=== PATIENT | female | born 1985 | race Caucasian/White ===

== ENCOUNTER 2018-04-01 09:19 | Day surgery (SDC) | payer BC ==
--- OUTSIDE RECORDS SUMMARY | 2018-04-01 09:22 | XMS REPORT | Clinical Summary ---
:1985 Author Organization [facility] Address [address] [place] [address] Care Team Providers Name Role Phone Asked, No Pcp Primary Care Provider Unavailable Allergies Active Allergy Reactions Severity Noted Date Comments Penicillin Hives High 11/20/2017 Current Medications Prescription Sig. Disp. Refills Start Date End Date Status hydrOXYzine (ATARAX) Take 50 mg by Discontinued 25 MG tablet mouth 3 8 (three) times a day as needed for anxiety (unclear frequency). Says takes 100 mg lithium 150 MG Take 100 mg Discontinued capsule by mouth 2 8 (two) times a day. One in the morning and 2 at night QUEtiapine Take 50 mg by Discontinued (SEROquel) 50 MG mouth 2 (two) 8 tablet times a day. gabapentin Take 1 90 capsule 0 11/25/2017 (NEURONTIN) 400 mg capsule (400 8 capsuleIndications: mg total) by Alcoholism mouth 3 (three) times a day for 30 days. hydrOXYzine (ATARAX) Take 1 tablet 30 tablet 0 11/25/2017 50 MG (50 mg total) 8 tabletIndications: by mouth Anxiety every 6 (six) hours as needed (Mild Anxiety) for up to 30 days. benztropine Take 1 tablet 60 tablet 0 11/25/2017 (COGENTIN) 1 MG (1 mg total) 8 tabletIndications: by mouth 2 Extrapyramidal (two) times a Disease day for 30 days. QUEtiapine Take 1 tablet 30 tablet 0 11/25/2017 (SEROquel) 100 MG (100 mg 8 tabletIndications: total) by Carol associated mouth nightly with Bipolar for 30 days. Disorder lithium 600 MG Take 1 30 capsule 0 11/25/2017 capsuleIndications: capsule (600 8 Bipolar Disorder mg total) by mouth nightly for 30 days. lithium 300 MG Take 1 30 capsule 0 11/25/2017 capsuleIndications: capsule (300 8 Bipolar Disorder mg total) by mouth every morning for 30 days. nicotine (NICODERM Place 1 patch 30 patch 0 11/25/2017 CQ) 21 mg/24 on the skin 8 hrIndications: daily as Smoking Cessation needed (Cravings) for up to 30 days. Active Problems Problem Noted Date Severe manic bipolar I disorder with psychotic features 11/21/2017 Suicidal ideations 11/20/2017 Encounters Date Type Specialty Care Team Description 11/20/2017 - Hospital Encounter Psychiatry Waldemar Ruby 11/25/2017 DO Kory Servin James N., MD after 03/31/2017 Family History Medical History Relation Name Comments Suicide Attempts Maternal Grandmother Suicide Attempts Sister Relation Name Status Comments Maternal Grandmother Sister Social History Tobacco Use Types Packs/Day Years Used Date Current Every Day Smoker Cigarettes 1 15 Started: 07/20/1996 Smokeless Tobacco: Never Used Tobacco Cessation: Ready to Quit: No; Counseling Given: Yes Comments: refused quit line Alcohol Use Drinks/Week oz/Week Comments No denies Sex Assigned at Date Recorded Not on file Last Filed Vital Signs Vital Sign Reading Time Taken Blood Pressure 103/68 11/25/2017 5:41 AM [employer] Pulse 73 11/25/2017 5:41 AM [employer] TRA[employer] Temperature 36.5 C (97.7 F) 11/25/2017 5:41 AM [employer] TRA[employer]IST Respiratory Rate 18 11/25/2017 5:41 AM [employer] TRA[employer]IST Oxygen Saturation 97% 11/24/2017 8:31 PM [employer] TRA[employer]ING [employer]IST Inhaled Oxygen Concentration - - Weight 51.9 kg (114 lb 8 oz) 11/20/2017 10:39 PM [employer] TRA[employer] Height 149.9 cm (4' 11") 11/20/2017 10:39 PM [employer] Body Mass Index 23.13 11/20/2017 10:39 PM [employer] TRA[employer]IST Plan of Treatment Not on file Procedures Procedure Name Priority Date/Time Associated Comments Diagnosis LITHIUM LEVEL Routine 11/25/2017 6:00 Results for this AM [employer] procedure are in the results section. ECG 12-LEAD STAT 11/20/2017 9:43 Results for this PM [employer] procedure are in the results section. LIPID PANEL STAT 11/20/2017 9:30 Results for this PM [employer] procedure are in the results section. HEMOGLOBIN A1C STAT 11/20/2017 9:30 Results for this PM [employer] procedure are in the results section. ESTIMATED GFR STAT 11/20/2017 9:30 Results for this PM [employer] procedure are in the results section. CARBAMAZEPINE LEVEL STAT 11/20/2017 9:30 Results for this PM [employer] procedure are in the results section. LITHIUM LEVEL STAT 11/20/2017 9:30 Results for this PM [employer] procedure are in the results section. HCG QUALITATIVE, SERUM STAT 11/20/2017 9:30 Results for this SCREEN PM [employer] procedure are in the results section. CREATINE KINASE, TOTAL STAT 11/20/2017 9:30 Results for this (CPK) PM [employer] procedure are in the results section. SALICYLATE LEVEL STAT 11/20/2017 9:30 Results for this PM [employer] procedure are in the results section. ACETAMINOPHEN LEVEL STAT 11/20/2017 9:30 Results for this PM [employer] procedure are in the results section. URINE DRUGS OF ABUSE STAT 11/20/2017 9:30 Results for this SCREEN PM [employer] procedure are in the results section. URINALYSIS SCREEN AND STAT 11/20/2017 9:30 Results for this MICROSCOPY, WITH PM [employer] procedure are in REFLEX TO CULTURE the results section. ALCOHOL LEVEL, BLOOD STAT 11/20/2017 9:30 Results for this PM [employer] procedure are in the results section. THYROID STIMULATING STAT 11/20/2017 9:30 Results for this HORMONE PM [employer] procedure are in the results section. T4, FREE STAT 11/20/2017 9:30 Results for this PM [employer] procedure are in the results section. COMPREHENSIVE STAT 11/20/2017 9:30 Results for this METABOLIC PANEL PM [employer] procedure are in the results section. HC COMPLETE BLD COUNT STAT 11/20/2017 9:30 Results for this W/AUTO DIFF PM [employer] procedure are in the results section. URINE CULTURE STAT 11/20/2017 9:30 Results for this PM [employer] procedure are in the results section. after 03/31/2017 Results [place] level (11/25/2017 6:00 AM)Only the most recent of2 resultswithin the time period is included. [place] 0.77 0.60 - 1.20 mmol/L [facility] DEPARTMENT OF PATHOLOGY AND GENOMIC MEDICINE Specimen Serum Performing Organization Address City/[facility]/Zipcode Phone Number [facility] DEPARTMENT OF PATHOLOGY AND [address] [place] [id number] [facility] MEDIC[facility] ECG 12 lead (11/20/2017 9:43 PM) Ventricular rate 84 [facility] MUSE Atrial rate 84 [facility] M[facility] MS interval 124 [facility]USE QRSD interval 84 [facility] QT interval 398 [facility] QTC interval 470 [facility] MUSE P axis 1 56 [facility]USE QRS axis 1 69 [facility] M[facility] T wave axis 55 [facility] MUSE EKG impression Normal sinus rhythm-Normal ECG-No previous [facility]USE ECGs available- Performing Organization Address City/[facility] Phone Number [facility] MUSE [address] [place] [address] Urinalysis screen and microscopy, with reflex to culture (11/20/2017 9:30 PM) Specimen site Clean catch [facility] DEPARTMENT OF PATHOLOGY AND GENOMIC MEDICINE Color, UA Colorless [facility] DEPARTMENT OF PATHOLOGY AND GENOMIC MEDICINE Appearance, UA Clear [facility] DEPARTMENT OF PATHOLOGY AND GENOMIC MEDICINE Specific gravity, UA 1.003 1.001 - 1.035 [facility] DEPARTMENT OF PATHOLOGY AND GENOMIC MEDICINE pH, UA 7.0 5.0 - 8.5 [facility] DEPARTMENT OF PATHOLOGY AND GENOMIC MEDICINE Protein, UA Negative Negative [facility] DEPARTMENT OF PATHOLOGY AND GENOMIC MEDICINE Glucose, UA Negative Negative [facility] DEPARTMENT OF PATHOLOGY AND GENOMIC MEDICINE Ketones, UA Negative Negative [facility] DEPARTMENT OF PATHOLOGY AND GENOMIC MEDICINE Bilirubin, UA Negative Negative [facility] DEPARTMENT OF PATHOLOGY AND GENOMIC MEDICINE Blood, UA Negative Negative [facility] DEPARTMENT OF PATHOLOGY AND GENOMIC MEDICINE Nitrite, UA Negative Negative [facility] DEPARTMENT OF PATHOLOGY AND GENOMIC MEDICINE Urobilinogen, UA <2.0 <2.0 [facility] DEPARTMENT OF PATHOLOGY AND GENOMIC MEDICINE Leukocyte esterase, UA Negative Negative [facility] DEPARTMENT OF PATHOLOGY AND GENOMIC MEDICINE Epithelial cells, UA 1 /HPF [facility] DEPARTMENT OF PATHOLOGY AND GENOMIC MEDICINE WBC, UA <1 0 - 4 /HPF [facility] DEPARTMENT OF PATHOLOGY AND GENOMIC MEDICINE RBC, UA <1 0 - 2 /HPF [facility] DEPARTMENT OF PATHOLOGY AND GENOMIC MEDICINE Bacteria, UA None seen None seen [facility] DEPARTMENT OF PATHOLOGY AND GENOMIC MEDICINE Yeast, UA None seen [facility] DEPARTMENT OF PATHOLOGY AND GENOMIC MEDICINE Yeast with pseudohyphae, UA None seen [facility] DEPARTMENT OF PATHOLOGY AND GENOMIC MEDICINE Specimen Urine Performing Organization Address City/[facility] Phone Number [facility] DEPARTMENT OF PATHOLOGY AND [address] [place] [phone] [facility] Estimated GFR (11/20/2017 9:30 PM) GFR Non Af Amer >90 mL/min/1.73 m2 [facility] DEPARTMENT OF PATHOLOGY AND GENOMIC MEDICINE GFR Af Amer >90 mL/min/1.73 m2 [facility] DEPARTMENT OF Comment: PATHOLOGY AND GENOMIC Chronic kidney disease: <60 mL/min/1.73m2 MEDICINE Kidney failure: <15 mL/min/1.73m2 The estimated GFR is calculated from the IDMS-traceable Modification of Diet in Renal Disease Equation. The accuracy of the calculation is poor when the creatinine is normal. Calculated values >90 mL/min/1.73m2 are not reported. This equation has not been validated in children (<18 years), women, the elderly (>70 years), or ethnic groups other than Caucasians and Americans. Specimen Plasma specimen Performing Organization Address City/[facility]ode Phone Number [facility] DEPARTMENT OF PATHOLOGY AND [address] [place] [address] [facility] Urine drugs of abuse screen (11/20/2017 9:30 PM) Amphetamine screen, urine Positive (A) [facility] DEPARTMENT OF PATHOLOGY AND GENOMIC MEDICINE Barbiturate screen, urine Negative [facility] DEPARTMENT OF PATHOLOGY AND GENOMIC MEDICINE Benzodiazepine screen, Negative [facility] DEPARTMENT OF urine PATHOLOGY AND GENOMIC MEDICINE Cannabinoid screen, urine Negative [facility] DEPARTMENT OF PATHOLOGY AND GENOMIC MEDICINE Cocaine screen, urine Negative [facility] DEPARTMENT OF PATHOLOGY AND GENOMIC MEDICINE Methadone metabolite Negative [facility] DEPARTMENT OF (EDDP), urine PATHOLOGY AND GENOMIC MEDICINE Opiates screen, urine Negative [facility] DEPARTMENT OF PATHOLOGY AND GENOMIC MEDICINE Oxycodone screen, urine Negative [facility] DEPARTMENT OF PATHOLOGY AND GENOMIC MEDICINE Phencyclidine screen, urine Negative [facility] DEPARTMENT OF PATHOLOGY AND GENOMIC MEDICINE Tricyclic screen, urine Negative [facility] DEPARTMENT OF Comment: PATHOLOGY AND GENOMIC Drug screen minimum concentration of detectability MEDICINE Eujcxcdkuyxr1752 ng/mL Barbiturates 200 ng/mL Jjvmplxhthdyhgt454 ng/mL Gyjghhg501 ng/mL Conaacskr265 ng/mL Oextngy476 ng/mL Gitmsxlcz151 ng/mL Phencyclidine 25 ng/mL Mifpwpogaorp03 ng/mL Asvnlflcbs0467 ng/mL Negative test results indicates presumptive evidence of lack of clinically significant drug concentration in this urine specimen. Positive test results are presumptive evidence of clinically significant drug concentration in this urine specimen. Testing performed for medical purposes only. Specimen Urine Performing Organization Address [facility] Phone Number [facility] DEPARTMENT OF PATHOLOGY AND [address] [place] [address] [employer] [facility] CBC with platelet and differential (11/20/2017 9:30 PM) WBC 11.04 (H) 4.50 - 11.00 k/uL [facility] DEPARTMENT OF PATHOLOGY AND GENOMIC MEDICINE RBC 4.35 4.20 - 5.50 m/uL [facility] DEPARTMENT OF PATHOLOGY AND GENOMIC MEDICINE HGB 12.7 12.0 - 16.0 g/dL [facility] DEPARTMENT OF PATHOLOGY AND GENOMIC MEDICINE HCT 38.3 37.0 - 47.0 % [facility] DEPARTMENT OF PATHOLOGY AND GENOMIC MEDICINE MCV 88.0 82.0 - 100.0 fL [facility] DEPARTMENT OF PATHOLOGY AND GENOMIC MEDICINE MCH 29.2 27.0 - 34.0 pg [facility] DEPARTMENT OF PATHOLOGY AND GENOMIC MEDICINE MCHC 33.2 31.0 - 37.0 g/dL [facility] DEPARTMENT OF PATHOLOGY AND GENOMIC MEDICINE RDW - SD 42.6 37.0 - 55.0 fL [facility] DEPARTMENT OF PATHOLOGY AND GENOMIC MEDICINE MPV 10.6 8.8 - 13.2 fL [facility] DEPARTMENT OF PATHOLOGY AND GENOMIC MEDICINE Platelet count 261 150 - 400 k/uL [facility] DEPARTMENT OF PATHOLOGY AND GENOMIC MEDICINE Nucleated RBC 0.00 /100 WBC [facility] DEPARTMENT OF PATHOLOGY AND GENOMIC MEDICINE Neutrophils 44.1 39.0 - 69.0 % [facility] DEPARTMENT OF PATHOLOGY AND GENOMIC MEDICINE Lymphocytes 37.0 25.0 - 45.0 % [facility] DEPARTMENT OF PATHOLOGY AND GENOMIC MEDICINE Monocytes 10.4 (H) 0.0 - 10.0 % [facility] DEPARTMENT OF PATHOLOGY AND GENOMIC MEDICINE Eosinophils 7.2 (H) 0.0 - 5.0 % [facility] DEPARTMENT OF PATHOLOGY AND GENOMIC MEDICINE Basophils 0.7 0.0 - 1.0 % [facility] DEPARTMENT OF PATHOLOGY AND GENOMIC MEDICINE Immature granulocytes 0.6Comment: 0.0 - 1.0 % [facility] DEPARTMENT OF "Immature PATHOLOGY AND GENOMIC granulocytes" MEDICINE (promyelocytes, myelocytes, metamyelocytes) Specimen Blood Performing Organization Address City/[facility]ode Phone Number [facility] DEPARTMENT OF PATHOLOGY AND [address] Urine culture (11/20/2017 9:30 PM) Urine culture SEE COMMENTComment: Bacteriuria [facility] DEPARTMENT OF PATHOLOGY screen negative. AND [facility] MEDIC[facility] Performing Organization Address [facility] Cent[facility]ode Phone Number [facility] DEPARTMENT OF PATHOLOGY AND [address] [place] [address] hCG qualitative, serum screen (11/20/2017 9:30 PM) hCG qualitative, serum NegativeComment: [facility] DEPARTMENT OF Sensitivity of HCG test: 25 PATHOLOGY AND GENOMIC mIU/mL MEDICINE Specimen Blood Performing Organization Address [facility] Phone Number [facility] DEPARTMENT OF PATHOLOGY AND [address] [place] [address] Thyroid stimulating hormone (11/20/2017 9:30 PM) TSH 0.76 0.27 - 4.20 uIU/mL [facility] DEPARTMENT OF PATHOLOGY AND [facility] Specimen Plasma specimen Performing Organization Address [facility] Phone Number [facility] DEPARTMENT OF PATHOLOGY AND [address] [place] [address] T4, free (11/20/2017 9:30 PM) T4, free 1.8 (H) 0.9 - 1.7 ng/dL [facility] DEPARTMENT OF PATHOLOGY AND [facility] MED[facility] Specimen Plasma specimen Performing Organization Address [facility] Phone Number [facility] DEPARTMENT OF PATHOLOGY AND [address] [place] [address] Hemoglobin A1c (11/20/2017 9:30 PM) Hemoglobin A1C 5.1 4.0 - 5.6 % [facility] DEPARTMENT OF PATHOLOGY Comment: [facility] HbA1c cutoffs for diagnosing diabetes: 4.0% - 5.6%=normal 5.7% - 6.4%=increased risk for diabetes (prediabetes) >=6.5%=diabetes Goals for glycemic control (ADA 2016) < 7.0%Target for non adults with diabetes. More or less stringent targets may be appropriate for individual patients. <7.5% Target for Children and adolescents with type 1 diabetes. Performing Organization Address City/[facility]ode Phone Number [facility] DEPARTMENT OF PATHOLOGY AND [address] [place] [address] Creatine kinase, total (CPK) (11/20/2017 9:30 PM) Creatine kinase 249 (H) 26 - 192 U/L [facility] DEPARTMENT OF PATHOLOGY AND GENOMIC MEDICINE Specimen Plasma specimen Performing Organization Address City/[facility]ode Phone Number [facility] DEPARTMENT OF PATHOLOGY AND [address] [place] [id number] [place] [address] Alcohol level, blood (11/20/2017 9:30 PM) Alcohol None Detected mg/dL [facility] DEPARTMENT OF PATHOLOGY Comment: AND GENOMIC MEDICINE Normal None Detected Legal Intoxication in [place]80 mg/dL (0.08%) - Whole Blood Toxic Qjslppcavegyo367 mg/dL (0.2%) Potentially Ldiok203 - 500 mg/dL (0.35 - 0.5%) Alcohol percent None Detected % [facility] DEPARTMENT OF PATHOLOGY AND GENOMIC MEDICINE Specimen Plasma specimen Performing Organization Address [facility] Phone Number [facility] DEPARTMENT OF PATHOLOGY AND [address] [place] [phone] [facility] Acetaminophen level (11/20/2017 9:30 PM) Acetaminophen level <15.0 10.0 - 30.0 ug/mL [facility] DEPARTMENT OF Comment: PATHOLOGY AND GENOMIC Therapeutic 10-30 ug/mL MEDICINE Possible Toxicity 150-200 ug/mL Probable Toxicity >200 ug/mL Specimen Plasma specimen Performing Organization Address [facility] Phone Number [facility] DEPARTMENT OF PATHOLOGY AND [address] [place] [address] MEDICINE Salicylate level (11/20/2017 9:30 PM) Salicylate <3.0 3.0 - 30.0 mg/dL [facility] DEPARTMENT OF PATHOLOGY AND GENOMIC MEDICINE Specimen Plasma specimen Performing Organization Address [facility] Phone Number [facility] DEPARTMENT OF PATHOLOGY AND [address] [place] [phone] [facility] MED[facility] Carbamazepine level (11/20/2017 9:30 PM) Carbamazepine <2.00 (L) 8.00 - 12.00 ug/mL [facility] DEPARTMENT OF PATHOLOGY AND GENOMIC MEDICINE Specimen Blood Performing Organization Address [facility] Phone Number [facility] DEPARTMENT OF PATHOLOGY AND [address] [place] [phone] GENOMIC MEDICINE Lipid panel (11/20/2017 9:30 PM) Cholesterol 145 <200 mg/dL [facility] DEPARTMENT OF PATHOLOGY AND GENOMIC MEDICINE Triglycerides 116 <150 mg/dL [facility] DEPARTMENT OF PATHOLOGY AND GENOMIC MEDICINE HDL cholesterol 46 >40 mg/dL [facility] DEPARTMENT OF PATHOLOGY AND GENOMIC MEDICINE LDL cholesterol 86Comment: Result <100 mg/dL [facility] DEPARTMENT OF obtained by direct LDL PATHOLOGY AND GENOMIC measurement MEDICINE Lipid panel interpretation SeeBelow [facility] DEPARTMENT OF Comment: PATHOLOGY AND GENOMIC Total Cholesterol (mg/dL) MEDICINE <200 Desirable 341-632Ffbunhixfh-hypw >=240High Triglycerides (mg/dL) <150 Normal [id number]-ygaz 200-499High >=500Very high HDL Cholesterol (mg/dL) <40Low (male) <40Low (female) LDL Cholesterol (mg/dL) <100 Optimal 100-129Near or above optimal [phone]-tnje 160-189High >=190Very high Risk Catergories that modify LDL goals. Risk CatergoriesLDL goal (mg/dL) CHD and CHD risk equivalent<100 (10-year risk >20%) Multiple (2+) risk factors <130 (10-year risk=<20%) 0-1 risk factors <160 (<10-year risk) Defining levels of lipids in metabolic syndrome Triglycerides>=150 mg/dL HDL Cholesterol Men<40 mg/dL Women<40 mg/dL Non-HDL cholesterol is a second target for therapy in persons with high triglycerides (>=200 mg/dL) Specimen Plasma specimen Performing Organization Address City/State/Zipcode Phone Number [facility] DEPARTMENT OF PATHOLOGY AND [address] [place] [address] GENOMIC MEDICINE Comprehensive metabolic panel (11/20/2017 9:30 PM) Sodium 142 135 - 148 mEq/L [facility] DEPARTMENT OF PATHOLOGY AND GENOMIC MEDICINE Potassium 4.2 3.5 - 5.0 mEq/L [facility] DEPARTMENT OF PATHOLOGY AND GENOMIC MEDICINE Chloride 102 98 - 112 mEq/L [facility] DEPARTMENT OF PATHOLOGY AND GENOMIC MEDICINE CO2 26 24 - 31 mEq/L [facility] DEPARTMENT OF PATHOLOGY AND GENOMIC MEDICINE Anion gap 14 7 - 15 mEq/L [facility] DEPARTMENT OF Comment: PATHOLOGY AND GENOMIC Starting from January , anion gap calculation MEDICINE no longer incorporates potassium. Please note the change. BUN 11 6 - 20 mg/dL [facility] DEPARTMENT OF PATHOLOGY AND GENOMIC MEDICINE Creatinine 0.7 0.5 - 0.9 mg/dL [facility] DEPARTMENT OF PATHOLOGY AND GENOMIC MEDICINE Glucose 95 65 - 99 mg/dL [facility] DEPARTMENT OF PATHOLOGY AND GENOMIC MEDICINE Calcium 9.2 8.3 - 10.2 mg/dL [facility] DEPARTMENT OF PATHOLOGY AND GENOMIC MEDICINE Protein 6.9 6.3 - 8.3 g/dL [facility] DEPARTMENT OF Comment: PATHOLOGY AND GENOMIC 4.6-7.0 g/dL MEDICINE 1 week 4.4-7.6 g/dL 7 months-1year5.1-7.3 g/dL 1-2 years5.6-7.5 g/dL >3 years6.0-8.0 g/dL 18-150 6.3-8.3 g/dL Albumin 3.5 3.5 - 5.0 g/dL [facility] DEPARTMENT OF PATHOLOGY AND GENOMIC MEDICINE A/G ratio 1.0 0.7 - 3.8 [facility] DEPARTMENT OF PATHOLOGY AND GENOMIC MEDICINE Alkaline phosphatase 52 35 - 104 U/L [facility] DEPARTMENT OF PATHOLOGY AND GENOMIC MEDICINE AST 45 (H) 10 - 35 U/L [facility] DEPARTMENT OF PATHOLOGY AND GENOMIC MEDICINE ALT 56 (H) 5 - 50 U/L [facility] DEPARTMENT OF PATHOLOGY AND GENOMIC MEDICINE Total bilirubin 0.5 0.0 - 1.2 mg/dL [facility] DEPARTMENT OF PATHOLOGY AND GENOMIC MEDICINE Specimen Plasma specimen Performing Organization Address City/State/Zipcode Phone Number [facility] DEPARTMENT OF PATHOLOGY AND [address] [place] [address] [employer] [facility] after 03/31/2017
--- OUTSIDE RECORDS SUMMARY | 2018-04-01 09:22 | XMS REPORT | Continuity of Care Document ---
:1985 Author Organization Interface Problems Problem Status Onset Date Classification Date Comments Source Reported Medications Medication Details Route Status Patient Ordering Order Source Instructions Provider Date Allergies, Adverse Reactions, Alerts Substance Category Reaction Severity Reaction Status Date Comments Source type Reported Immunizations Immunization Date Given Site Status Last Updated Comments Source Results Order Results Value Reference Date Interpretation Comments Source Name Range Vital Signs Vital Sign Value Date Comments Source Encounters Location Location Encounter Encounter Reason Attending ADM DC Status Source Details Type Number For Provider Date Date Visit Outpatient [id number] JULIET 02/24 [facility] [place] Outpatient [id number] JULIET 03/18 [facility] [place] Outpatient [id number] JULIET 04/16 [facility] [place] Procedures Procedure Code Date Perfomer Comments Source
--- OUTSIDE RECORDS SUMMARY | 2018-04-01 09:25 | XMS REPORT | Clinical Summary ---
:1985 Author Organization [facility] Address [address] [place] [address] Care Team Providers Name Role Phone Asked, [...] Taken Blood Pressure 103/68 11/25/2017 5:41 AM FOOD WRITER Pulse 73 11/25/2017 5:41 AM FOOD WRITER Temperature 36.5 C (97.7 F) 11/25/2017 5:41 AM FOOD WRITER Respiratory Rate 18 11/25/2017 5:41 AM FOOD WRITER Oxygen Saturation 97% 11/24/2017 8:31 PM FOOD WRITER Inhaled Oxygen Concentration - - Weight 51.9 kg (114 lb 8 oz) 11/20/2017 10:39 PM FOOD WRITER Height 149.9 cm (4' 11") 11/20/2017 10:39 PM FOOD WRITER Body Mass Index 23.13 11/20/2017 10:39 PM FOOD WRITER Plan of Treatment Not on file Procedures Procedure Name Priority Date/Time Associated Comments Diagnosis LITHIUM LEVEL Routine 11/25/2017 6:00 Results for this AM FOOD WRITER procedure are in the results section. ECG 12-LEAD STAT 11/20/2017 9:43 Results for this PM FOOD WRITER procedure are in the results section. LIPID PANEL STAT 11/20/2017 9:30 Results for this PM FOOD WRITER procedure are in the results section. HEMOGLOBIN A1C STAT 11/20/2017 9:30 Results for this PM FOOD WRITER procedure are in the results section. ESTIMATED GFR STAT 11/20/2017 9:30 Results for this PM FOOD WRITER procedure are in the results section. CARBAMAZEPINE LEVEL STAT 11/20/2017 9:30 Results for this PM FOOD WRITER procedure are in the results section. LITHIUM LEVEL STAT 11/20/2017 9:30 Results for this PM FOOD WRITER procedure are in the results section. HCG QUALITATIVE, SERUM STAT 11/20/2017 9:30 Results for this SCREEN PM FOOD WRITER procedure are in the results section. CREATINE KINASE, TOTAL STAT 11/20/2017 9:30 Results for this (CPK) PM FOOD WRITER procedure are in the results section. SALICYLATE LEVEL STAT 11/20/2017 9:30 Results for this PM FOOD WRITER procedure are in the results section. ACETAMINOPHEN LEVEL STAT 11/20/2017 9:30 Results for this PM FOOD WRITER procedure are in the results section. URINE DRUGS OF ABUSE STAT 11/20/2017 9:30 Results for this SCREEN PM FOOD WRITER procedure are in the results section. URINALYSIS SCREEN AND STAT 11/20/2017 9:30 Results for this MICROSCOPY, WITH PM FOOD WRITER procedure are in REFLEX TO CULTURE the results section. ALCOHOL LEVEL, BLOOD STAT 11/20/2017 9:30 Results for this PM FOOD WRITER procedure are in the results section. THYROID STIMULATING STAT 11/20/2017 9:30 Results for this HORMONE PM FOOD WRITER procedure are in the results section. T4, FREE STAT 11/20/2017 9:30 Results for this PM FOOD WRITER procedure are in the results section. COMPREHENSIVE STAT 11/20/2017 9:30 Results for this METABOLIC PANEL PM FOOD WRITER procedure are in the results section. HC COMPLETE BLD COUNT STAT 11/20/2017 9:30 Results for this W/AUTO DIFF PM FOOD WRITER procedure are in the results section. URINE CULTURE STAT 11/20/2017 9:30 Results for this PM FOOD WRITER procedure are in the results section. after 03/31/2017 Results [place] level (11/25/2017 6:00 AM)Only the most recent of2 resultswithin the time period is included. [place] 0.77 0.60 - 1.20 mmol/L [facility] DEPARTMENT OF PATHOLOGY AND GENOMIC MEDICINE Specimen Serum Performing Organization Address City/[facility]/Zipcode Phone Number [facility] DEPARTMENT OF PATHOLOGY AND [address] [place] [id number] [facility] MEDICINE ECG 12 lead (11/20/2017 9:43 PM) Ventricular rate 84 [facility] MUSE Atrial rate 84 [facility] OK interval 124 [facility] QRSD interval 84 [facility] QT interval 398 [facility] QTC interval 470 [facility] P axis 1 56 [facility] QRS axis 1 69 [facility] T wave axis 55 [facility] EKG impression Normal sinus rhythm-Normal ECG-No previous [facility] ECGs available- Performing Organization Address City/[facility] Phone Number [facility] [address] [place] [address] Urinalysis screen and microscopy, with reflex to culture (11/20/2017 9:30 PM) Specimen site Clean catch [facility] DEPARTMENT OF PATHOLOGY AND GENOMIC MEDICINE Color, UA Colorless [facility] DEPARTMENT OF PATHOLOGY AND GENOMIC MEDICINE Appearance, UA Clear [facility] DEPARTMENT OF PATHOLOGY AND GENOMIC MEDICINE Specific gravity, UA 1.003 1.001 - 1.035 [facility] DEPARTMENT OF PATHOLOGY AND GENOMIC MEDICINE pH, UA 7.0 5.0 - 8.5 [facility] DEPARTMENT OF PATHOLOGY AND GENOMIC MEDICINE Protein, UA Negative Negative [facility] DEPARTMENT OF PATHOLOGY AND GENOMIC MEDICINE Glucose, UA Negative Negative [facility] DEPARTMENT OF PATHOLOGY AND GENOMIC MEDICINE Ketones, UA Negative Negative [facility] DEPARTMENT OF PATHOLOGY AND GENOMIC MEDICINE Bilirubin, UA Negative Negative [facility] DEPARTMENT OF PATHOLOGY AND GENOMIC MEDICINE Blood, UA Negative Negative [facility] DEPARTMENT OF PATHOLOGY AND GENOMIC MEDICINE Nitrite, UA Negative Negative [facility] DEPARTMENT OF PATHOLOGY AND GENOMIC MEDICINE Urobilinogen, UA <2.0 <2.0 [facility] DEPARTMENT OF PATHOLOGY AND GENOMIC MEDICINE Leukocyte esterase, UA Negative Negative [facility] DEPARTMENT OF PATHOLOGY AND GENOMIC MEDICINE Epithelial cells, UA 1 /HPF [facility] DEPARTMENT OF PATHOLOGY AND GENOMIC MEDICINE WBC, UA <1 0 - 4 /HPF [facility] DEPARTMENT OF PATHOLOGY AND GENOMIC MEDICINE RBC, UA <1 0 - 2 /HPF [facility] DEPARTMENT OF PATHOLOGY AND GENOMIC MEDICINE Bacteria, UA None seen None seen [facility] DEPARTMENT OF PATHOLOGY AND GENOMIC MEDICINE Yeast, UA None seen [facility] DEPARTMENT OF PATHOLOGY AND GENOMIC MEDICINE Yeast with pseudohyphae, UA None seen [facility] DEPARTMENT OF PATHOLOGY AND GENOMIC MEDICINE Specimen Urine Performing Organization Address City/[facility] Phone Number [facility] DEPARTMENT OF PATHOLOGY AND [address] [place] [address] [facility] Estimated GFR (11/20/2017 9:30 PM) GFR Non Af Amer >90 mL/min/1.73 m2 [facility] DEPARTMENT OF PATHOLOGY AND GENOMIC MEDICINE GFR Af Amer >90 mL/min/1.73 m2 [facility] DEPARTMENT OF Comment: PATHOLOGY AND GENOMIC [...] Americans. Specimen Plasma specimen Performing Organization Address City/[facility] Phone Number [facility] DEPARTMENT OF PATHOLOGY AND [address] [place] [address] [facility] Urine drugs of abuse screen (11/20/2017 9:30 PM) Amphetamine screen, urine Positive (A) [facility] DEPARTMENT OF PATHOLOGY AND GENOMIC MEDICINE Barbiturate screen, urine Negative [facility] DEPARTMENT OF PATHOLOGY AND GENOMIC MEDICINE Benzodiazepine screen, Negative [facility] DEPARTMENT OF urine PATHOLOGY AND GENOMIC MEDICINE Cannabinoid screen, urine Negative [facility] DEPARTMENT OF PATHOLOGY AND GENOMIC MEDICINE Cocaine screen, urine Negative [facility] DEPARTMENT OF PATHOLOGY AND GENOMIC MEDICINE Methadone metabolite Negative [facility] DEPARTMENT OF (EDDP), urine PATHOLOGY AND GENOMIC MEDICINE Opiates screen, urine Negative [facility] DEPARTMENT OF PATHOLOGY AND GENOMIC MEDICINE Oxycodone screen, urine Negative [facility] DEPARTMENT OF PATHOLOGY AND GENOMIC MEDICINE Phencyclidine screen, urine Negative [facility] DEPARTMENT OF PATHOLOGY AND GENOMIC MEDICINE Tricyclic screen, urine Negative [facility] DEPARTMENT OF Comment: PATHOLOGY AND GENOMIC Drug screen minimum concentration of detectability MEDICINE Lfgbkxmurpxi0182 ng/mL Barbiturates 200 ng/mL Qqtnfdyycxuksyv012 ng/mL Sltkwlr583 ng/mL Cianfweax996 ng/mL Vmdbqux923 ng/mL Ahkwrxxka057 ng/mL Phencyclidine 25 ng/mL Hkfmozyscqnx17 ng/mL Vpuscdomfe4457 ng/mL Negative test results indicates presumptive evidence of lack of clinically significant drug concentration in this urine specimen. Positive test results are presumptive evidence of clinically significant drug concentration in this urine specimen. Testing performed for medical purposes only. Specimen Urine Performing Organization Address [facility] Phone Number [facility] DEPARTMENT OF PATHOLOGY AND [address] [place] [address] [employer] [facility] CBC with platelet and differential (11/20/2017 9:30 PM) WBC 11.04 (H) 4.50 - 11.00 k/uL [facility] DEPARTMENT OF PATHOLOGY AND GENOMIC MEDICINE RBC 4.35 4.20 - 5.50 m/uL [facility] DEPARTMENT OF PATHOLOGY AND GENOMIC MEDICINE HGB 12.7 12.0 - 16.0 g/dL [facility] DEPARTMENT OF PATHOLOGY AND GENOMIC MEDICINE HCT 38.3 37.0 - 47.0 % [facility] DEPARTMENT OF PATHOLOGY AND GENOMIC MEDICINE MCV 88.0 82.0 - 100.0 fL [facility] DEPARTMENT OF PATHOLOGY AND GENOMIC MEDICINE MCH 29.2 27.0 - 34.0 pg [facility] DEPARTMENT OF PATHOLOGY AND GENOMIC MEDICINE MCHC 33.2 31.0 - 37.0 g/dL [facility] DEPARTMENT OF PATHOLOGY AND GENOMIC MEDICINE RDW - SD 42.6 37.0 - 55.0 fL [facility] DEPARTMENT OF PATHOLOGY AND GENOMIC MEDICINE MPV 10.6 8.8 - 13.2 fL [facility] DEPARTMENT OF PATHOLOGY AND GENOMIC MEDICINE Platelet count 261 150 - 400 k/uL [facility] DEPARTMENT OF PATHOLOGY AND GENOMIC MEDICINE Nucleated RBC 0.00 /100 WBC [facility] DEPARTMENT OF PATHOLOGY AND GENOMIC MEDICINE Neutrophils 44.1 39.0 - 69.0 % [facility] DEPARTMENT OF PATHOLOGY AND GENOMIC MEDICINE Lymphocytes 37.0 25.0 - 45.0 % [facility] DEPARTMENT OF PATHOLOGY AND GENOMIC MEDICINE Monocytes 10.4 (H) 0.0 - 10.0 % [facility] DEPARTMENT OF PATHOLOGY AND GENOMIC MEDICINE Eosinophils 7.2 (H) 0.0 - 5.0 % [facility] DEPARTMENT OF PATHOLOGY AND GENOMIC MEDICINE Basophils 0.7 0.0 - 1.0 % [facility] DEPARTMENT OF PATHOLOGY AND GENOMIC MEDICINE Immature granulocytes 0.6Comment: 0.0 - 1.0 % [facility] DEPARTMENT OF "Immature PATHOLOGY AND GENOMIC granulocytes" MEDICINE (promyelocytes, myelocytes, metamyelocytes) Specimen Blood Performing Organization Address City/[facility] Phone Number [facility] DEPARTMENT OF PATHOLOGY AND [address] Urine culture (11/20/2017 9:30 PM) Urine culture SEE COMMENTComment: Bacteriuria [facility] DEPARTMENT OF PATHOLOGY screen negative. AND [facility] MEDICINE Performing Organization Address [facility] Phone Number [facility] DEPARTMENT OF PATHOLOGY AND [address] [place] [address] hCG qualitative, serum screen (11/20/2017 9:30 PM) hCG qualitative, serum NegativeComment: [facility] DEPARTMENT OF Sensitivity of HCG test: 25 PATHOLOGY AND GENOMIC mIU/mL MEDICINE Specimen Blood Performing Organization Address [facility] Phone Number [facility] DEPARTMENT OF PATHOLOGY AND [address] [place] [address] Thyroid stimulating hormone (11/20/2017 9:30 PM) TSH 0.76 0.27 - 4.20 uIU/mL [facility] DEPARTMENT OF PATHOLOGY AND [facility] Specimen Plasma specimen Performing Organization Address [facility] Phone Number [facility] DEPARTMENT OF PATHOLOGY AND [address] [place] [address] T4, free (11/20/2017 9:30 PM) T4, free 1.8 (H) 0.9 - 1.7 ng/dL [facility] DEPARTMENT OF PATHOLOGY AND [facility] MEDICINE Specimen Plasma specimen Performing Organization Address [facility] Phone Number [facility] DEPARTMENT OF PATHOLOGY AND [address] [place] [address] Hemoglobin A1c (11/20/2017 9:30 PM) Hemoglobin A1C 5.1 4.0 - 5.6 % [facility] DEPARTMENT OF PATHOLOGY Comment: [facility] HbA1c cutoffs for diagnosing diabetes: 4.0% - 5.6%=normal 5.7% - 6.4%=increased risk for diabetes (prediabetes) >=6.5%=diabetes Goals for glycemic control (ADA 2016) < 7.0%Target for non adults with diabetes. More or less stringent targets may be appropriate for individual patients. <7.5% Target for Children and adolescents with type 1 diabetes. Performing Organization Address City/[facility] Phone Number [facility] DEPARTMENT OF PATHOLOGY AND [address] [place] [address] Creatine kinase, total (CPK) (11/20/2017 9:30 PM) Creatine kinase 249 (H) 26 - 192 U/L [facility] DEPARTMENT OF PATHOLOGY AND GENOMIC MEDICINE Specimen Plasma specimen Performing Organization Address City/[facility] Phone Number [facility] DEPARTMENT OF PATHOLOGY AND [address] [place] [id number] [place] [address] Alcohol level, blood (11/20/2017 9:30 PM) Alcohol None Detected mg/dL [facility] DEPARTMENT OF PATHOLOGY Comment: AND GENOMIC MEDICINE Normal None Detected Legal Intoxication in [place]80 mg/dL (0.08%) - Whole Blood Toxic Jgidnehmzkcle157 mg/dL (0.2%) Potentially Twsfc494 - 500 mg/dL (0.35 - 0.5%) Alcohol percent None Detected % [facility] DEPARTMENT OF PATHOLOGY AND GENOMIC MEDICINE Specimen Plasma specimen Performing Organization Address [facility] Phone Number [facility] DEPARTMENT OF PATHOLOGY AND [address] [place] [address] [facility] MEDICINE Acetaminophen level (11/20/2017 9:30 PM) Acetaminophen level <15.0 10.0 - 30.0 ug/mL [facility] DEPARTMENT OF Comment: PATHOLOGY AND GENOMIC Therapeutic 10-30 ug/mL MEDICINE Possible Toxicity 150-200 ug/mL Probable Toxicity >200 ug/mL Specimen Plasma specimen Performing Organization Address [facility] Phone Number [facility] DEPARTMENT OF PATHOLOGY AND [address] [place] [address] MEDICINE Salicylate level (11/20/2017 9:30 PM) Salicylate <3.0 3.0 - 30.0 mg/dL [facility] DEPARTMENT OF PATHOLOGY AND GENOMIC MEDICINE Specimen Plasma specimen Performing Organization Address [facility] Phone Number [facility] DEPARTMENT OF PATHOLOGY AND [address] [place] [address] [facility] MEDICINE Carbamazepine level (11/20/2017 9:30 PM) Carbamazepine <2.00 (L) 8.00 - 12.00 ug/mL [facility] DEPARTMENT OF PATHOLOGY AND GENOMIC MEDICINE Specimen Blood Performing Organization Address [facility] Phone Number [facility] DEPARTMENT OF PATHOLOGY AND [address] [place] [address] GENOMIC MEDICINE Lipid panel (11/20/2017 9:30 PM) Cholesterol 145 <200 mg/dL [facility] DEPARTMENT OF PATHOLOGY AND GENOMIC MEDICINE Triglycerides 116 <150 mg/dL [facility] DEPARTMENT OF PATHOLOGY AND GENOMIC MEDICINE HDL cholesterol 46 >40 mg/dL [facility] DEPARTMENT OF PATHOLOGY AND GENOMIC MEDICINE LDL cholesterol 86Comment: Result <100 mg/dL [facility] DEPARTMENT OF obtained by direct LDL PATHOLOGY AND GENOMIC measurement MEDICINE Lipid panel interpretation SeeBelow [facility] DEPARTMENT OF Comment: PATHOLOGY AND GENOMIC Total Cholesterol (mg/dL) MEDICINE <200 Desirable 520-749Rqzovundcw-wbac >=240High Triglycerides (mg/dL) <150 Normal 097-838Mgmaryvtgm-cryt 200-499High >=500Very high HDL Cholesterol (mg/dL) <40Low (male) <40Low (female) LDL Cholesterol (mg/dL) <100 Optimal 100-129Near or above optimal 445-001Konvkunssg-pzzp 160-189High >=190Very high Risk Catergories that modify [...] specimen Performing Organization Address City/State/Zipcode Phone Number [facility] DEPARTMENT OF PATHOLOGY AND [address] [place] [address] GENOMIC MEDICINE Comprehensive metabolic panel (11/20/2017 9:30 PM) Sodium 142 135 - 148 mEq/L [facility] DEPARTMENT OF PATHOLOGY AND GENOMIC MEDICINE Potassium 4.2 3.5 - 5.0 mEq/L [facility] DEPARTMENT OF PATHOLOGY AND GENOMIC MEDICINE Chloride 102 98 - 112 mEq/L [facility] DEPARTMENT OF PATHOLOGY AND GENOMIC MEDICINE CO2 26 24 - 31 mEq/L [facility] DEPARTMENT OF PATHOLOGY AND GENOMIC MEDICINE Anion gap 14 7 - 15 mEq/L [facility] DEPARTMENT OF Comment: PATHOLOGY AND GENOMIC Starting from January , anion gap calculation MEDICINE no longer incorporates potassium. Please note the change. BUN 11 6 - 20 mg/dL [facility] DEPARTMENT OF PATHOLOGY AND GENOMIC MEDICINE Creatinine 0.7 0.5 - 0.9 mg/dL [facility] DEPARTMENT OF PATHOLOGY AND GENOMIC MEDICINE Glucose 95 65 - 99 mg/dL [facility] DEPARTMENT OF PATHOLOGY AND GENOMIC MEDICINE Calcium 9.2 8.3 - 10.2 mg/dL [facility] DEPARTMENT OF PATHOLOGY AND GENOMIC MEDICINE Protein 6.9 6.3 - 8.3 g/dL [facility] DEPARTMENT OF Comment: PATHOLOGY AND GENOMIC 4.6-7.0 g/dL MEDICINE 1 week 4.4-7.6 g/dL 7 months-1year5.1-7.3 g/dL 1-2 years5.6-7.5 g/dL >3 years6.0-8.0 g/dL 18-150 6.3-8.3 g/dL Albumin 3.5 3.5 - 5.0 g/dL [facility] DEPARTMENT OF PATHOLOGY AND GENOMIC MEDICINE A/G ratio 1.0 0.7 - 3.8 [facility] DEPARTMENT OF PATHOLOGY AND GENOMIC MEDICINE Alkaline phosphatase 52 35 - 104 U/L [facility] DEPARTMENT OF PATHOLOGY AND GENOMIC MEDICINE AST 45 (H) 10 - 35 U/L [facility] DEPARTMENT OF PATHOLOGY AND GENOMIC MEDICINE ALT 56 (H) 5 - 50 U/L [facility] DEPARTMENT OF PATHOLOGY AND GENOMIC MEDICINE Total bilirubin 0.5 0.0 - 1.2 mg/dL [facility] DEPARTMENT OF PATHOLOGY AND GENOMIC MEDICINE Specimen Plasma specimen Performing Organization Address City/State/Zipcode Phone Number [facility] DEPARTMENT OF PATHOLOGY AND [address] [place] [address] [employer] [facility] after 03/31/2017
--- OUTSIDE RECORDS SUMMARY | 2018-04-01 09:25 | XMS REPORT | Continuity of Care Document ---
[...] Number For Provider Date Date Visit Outpatient [id number] JULIET 02/[address] [facility] [place] Outpatient [id number] JULIET 03/[address] [facility] [place] [id number] JULIET 04/[address] [facility] [place] Procedures Procedure Code Date Perfomer Comments Source
[2018-04-01 10:01] VITALS: BMI 23.4
[2018-04-01 12:41] LABS: CSF Glucose 53 mg/dL (40-70)
[2018-04-01 12:50] LABS: Body Fluid Source CSF; Color of fluid Colorless (COLORLESS); Fluid Total Volume 12.5 ml
[2018-04-01 12:51] LABS: Appearance CLEAR (CLEAR); Body Fluid WBC 0 /mm^3
--- NOTE | 2018-04-01 13:08 | RAD REPORT ---
EXAM DESCRIPTION: RAD - Lumbar Puncture For Dx - 04/01/2018 12:04 pm CLINICAL HISTORY: Choreiform movements, dyskinesia COMPARISON: None. TECHNIQUE: The procedure, risks and alternatives to the procedure were discussed with the patient in detail. After answering all questions, both oral and written consent were obtained. Time-out proced ure was performed. Patient had no contraindicated allergy or medication history. The patient was placed in an oblique prone position on the fluoroscopic table. The skin of the lower back was prepped and draped in the usual sterile fashion. After anesthetizing the skin and deeper sof t tissues with 1% lidocaine, a 22 gauge needle was advanced into the thecal sac at the L3 level. Intrathecal placement was confirmed. Approximately 11-12 mL of clear colorless CSF obtained. At the conclusion of the procedure, the needle was withdrawn and a sterile bandage placed over the pu ncture site. The patient tolerated the procedure well without immediate complications. Post-procedu re care and precaution instructions were discussed with the patient before the LP procedure. Patient was transferred to the same day surgical area for postprocedure monitoring. IMPRESSION: Successful fluoroscopic guided lumbar puncture. All obtained fluid was sent to the lab for studies requested by the referring physician.
[2018-04-01 13:28] VITALS: TEMP 98.4
[2018-04-01 13:54] VITALS: BP 116/62; O2SAT 98
== END 2018-04-01 13:54 | disposition home or self-care (01) ==
LOC: RAD 09:19 → EDSTATUS 11:00 → RAD 13:54
PROVIDERS: ATTEND Specialist
PROC: 009U3ZX Drainage of Spinal Canal, Percutaneous Approach, Diagnostic (ICD-10-PCS; principal; 2018-04-01)
PROC: B01BYZZ Fluoroscopy of Spinal Cord using Other Contrast (ICD-10-PCS; 2018-04-01)
DX: G25.5 Other chorea (principal); G24.9 Dystonia, unspecified; Z88.0 Allergy status to penicillin
CPT/HCPCS: 36415; 62270; 77003; 82945; 84157; 86592; 87070; 89050

== ENCOUNTER 2019-04-18 19:44 | Emergency (ER) | payer BC ==
--- OUTSIDE RECORDS SUMMARY | 2019-04-18 19:47 | XMS REPORT | Clinical Summary ---
:1985 [facility] Address [address] [place] [address] Care Team Providers Name Role Phone Asked, No Pcp Primary Care Provider Unavailable Allergies Active Allergy Reactions Severity Noted Date Comments Penicillin Hives High 11/20/2017 Medications Not on file Active Problems Problem Noted Date Severe manic bipolar I disorder with psychotic features 11/21/2017 Suicidal ideations 11/20/2017 Family History Medical History Relation Name Comments [...] Assigned at Date Recorded Not on file Job Start Date Occupation Industry Not on file Not on file Not on file Travel History Travel Start Travel End No recent travel history available. Last Filed Vital Signs Not on file Plan of Treatment Not on file Results Not on fileafter 04/17/2018 Advance Directives Patient has advance care planning documents, and code status on file. For more information, please contact:[place] [phone] [place] [address] Code Status Date Activated Date Inactivated Comments Full Code 11/21/2017 12:28 AM 11/25/2017 4:08 PM Code Status decision reached by: Patient
--- OUTSIDE RECORDS SUMMARY | 2019-04-18 19:47 | XMS REPORT | Continuity of Care Document ---
:1985 Author Organization [facility] Care Team Providers Name Role Phone [facility] Unavailable Unavailable Problems Problem Status Onset Classification Date Comments Source Date Reported Bipolar Active Problem 03/08/2019 [facility] Chorea Active Problem 03/08/2019 [facility] Dyskinesia Active Problem 03/08/2019 [facility] Latent Active Problem 03/08/2019 [facility] syphilis [facility] Migraine with Active Problem 03/08/2019 [facility] aura Neuro Oral Active Problem 03/08/2019 [facility] dyskinesia [facility] Left arm pain Active Problem 03/08/2019 [facility] Prolonged QT Active Problem 03/08/2019 [facility] interval Neuro Dyskinesia, 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 Neuro Hepatitis C Active Problem 03/08/2019 [facility] Medications Medication Details Route Status Patient Ordering Order Source Instructions Provider Date deutetrabenazine 6 =1 tab, PO, Active [facility] MG Oral Tablet BID, # 60 019 Neuro [Austedo] tab, Refill(s) 1, [place], Pharmacy: [facility] deutetrabenazine 6 =1 tab, PO, No [facility] MG Oral Tablet BID, # 60 Longer 019 Neuro [Austedo] tab, Active Refill(s) 3, [place], Pharmacy: [facility] deutetrabenazine 6 =1 tab, PO, No [facility] MG Oral Tablet BID, # 60 Longer 019 Neuro [Austedo] tab, [place] Active [place], Pharmacy: [facility] deutetrabenazine 6 See No [facility] MG Oral Tablet Instruction Longer 018 Neuro [Austedo] s, # 60 Active tab, Refill(s) 2, TAKE 1 TABLET BY MOUTH TWICE DAILY ([place]), [place], Pharmacy: [facility] Allergies, Adverse Reactions, Alerts Substance Category Reaction Severity Reaction Status Date Comments Source type Reported penicillin Assertion Drug Active [facility] allergy [facility] Immunizations No Data Provided for This Section Results No Data Provided for This Section Pathology Reports No Data Provided for This Section Diagnostic Reports No Data Provided for This Section Consultation Notes No Data Provided for This Section Discharge Summaries No Data Provided for This Section History and Physicals No Data Provided for This Section Vital Signs No Data Provided for This Section Encounters Location Location Encounter Encounter Reason Attending ADM DC Status Source Details Type Number For Provider Date Date Visit Outpatient [id number] J[facility]/24 [facility] [id number] JUL[facility] 03/18 [facility] [id number] JULIET 04/16 [facility] [id number] JULIET 06/18 [facility] [id number] JULIET 08/18 [facility] [id number] Juliet 08/18 08/19 [facility] [id number] JULIET 11/11 [facility] [id number] JULIET 01/04 Active [facility] [id number] [place] 01/11 [facility] [id number] Juliet 04/05 Active [facility] [place] Procedures No Data Provided for This Section Assessment and Plan No Data Provided for This Section Plan of Care No Data Provided for This Section Social History Social History Date Source Social History TypeResponse 01/11/2019 [facility] Smoking Status Current every day smoker; Type: Cigarettes; Exposure to Tobacco Smoke Unable to obtain; Cigarette Smoking Last 365 Days Yes; Reg Smoking Cessation Counseling No entered on: 01/11/19 Family History No Data Provided for This Section Advance Directives No Data Provided for This Section Functional Status No Data Provided for This Section
--- OUTSIDE RECORDS SUMMARY | 2019-04-18 19:47 | XMS REPORT | Summary of Care ---
:1985 Author Organization [facility] [place] Address [address] [place] [address]- phone Encounter [facility] Edi(FARHAT) [id number] Date(s): 08/18/18 - 08/18/18 [facility] [place] [address] [place] [address]- [phone] Discharge Disposition: Home or Self Care Attending Physician: Gabriel Best MD Referring Physician: Gabriel Best MD Vital Signs No data available for this section Problem List Condition Effective Dates Status Health Status Informant Bipolar disorder(Confirmed) Active Chorea(Confirmed) Active Dyskinesia(Confirmed) Active Latent syphilis(Confirmed) Active Migraine with aura(Confirmed) Active Oral dyskinesia(Confirmed) Active Left arm pain(Confirmed) Active Prolonged QT interval(Confirmed) Active Dyskinesia, tardive(Confirmed) Active Dyskinesia, tardive(Confirmed) Active Hepatitis C(Confirmed) Active Allergies, Adverse Reactions, Alerts Substance Reaction Severity Status penicillin Active Medications [place] 6 mg oral tablet =1 tab, PO, BID, # 60 tab, Refill(s) 3, [place], Pharmacy: [facility] Start Date: 02/17/19 Stop Date: 03/03/19 Status: CompletedAustedo 6 mg oral tablet =1 tab, PO, BID, # 60 tab, Refill(s) 1, [place], Pharmacy: [facility] Start Date: 03/03/19 Status: OrderedAustedo 6 mg oral tablet =1 tab, PO, BID, # 60 tab, [place], Pharmacy: [facility] Start Date: 12/04/18 Stop Date: 02/17/19 Status: CompletedAustedo 6 mg oral tablet See Instructions, # 60 tab, Refill(s) 2, TAKE 1 TABLET BY MOUTH TWICE DAILY ([place]) , [place], Pharmacy: [facility] Pharm[facility] Start Date: 08/11/18 Stop Date: 12/04/18 Status: Completed Results No data available for this section Immunizations No data available for this section Procedures No data available for this section Social History Social History Type Response Smoking Status Current every day smoker; Type: Cigarettes; Exposure to Tobacco Smoke Unable to obtain; Cigarette Smoking Last 365 Days Yes; Reg Smoking Cessation Counseling No entered on: 01/11/19 Assessment and Plan No data available for this section
--- NOTE | 2019-04-18 20:45 | RAD REPORT ---
EXAM DESCRIPTION: RAD - Chest Pa And Lat (2 Views) - 04/18/2019 8:28 pm CLINICAL HISTORY: Cough, fever, sore throat COMPARISON: None. TECHNIQUE: PA and lateral views of the chest were obtained. FINDINGS: The lungs are clear. Heart size is normal and central vasculature is within normal limit s. No pleural effusion or pneumothorax seen. No acute bony finding noted. No aortic abnormality. IMPRESSION: No acute cardiopulmonary process.
--- NOTE | 2019-04-18 21:17 | ER ---
Nurse's Notes [facility] Name: Lynn Hartman Age: 34 yrs Sex: Female : 1985 Arrival Date: 04/18/2019 Time: 19:47 Bed 19 Private MD: Adan Giraldo T Diagnosis: Acute upper respiratory infection, unspecified Presentation: 04/18 19:55 Presenting complaint: Patient states: "cough, sore throat and fever since 3 days after cc3 coming back from [place]". Transition of care: patient was not received from another setting of care. Onset of symptoms was April 15, 2019. Risk Assessment: Do you want to hurt yourself or someone else? Patient reports no desire to harm self or others. Initial Sepsis Screen: Does the patient meet any 2 criteria? No. Patient's initial sepsis screen is negative. Does the patient have a suspected source of infection? Yes: Productive cough/pneumonia. Care prior to arrival: None. 19:55 Method Of Arrival: Ambulatory cc3 19:55 Acuity: RONI 4 cc3 Triage Assessment: 19:55 General: Appears in no apparent distress. uncomfortable, Behavior is cooperative. Pain: cc3 Denies pain. EENT: Reports cough and sore throat since 3 days. Neuro: Level of Consciousness is awake, alert, obeys commands, Oriented to person, place, time, situation, Appropriate for age. Cardiovascular: Denies chest pain, Capillary refill < 3 seconds Patient's skin is warm and dry. Respiratory: Airway is patent Respiratory effort is even, unlabored, Respiratory pattern is regular, symmetrical. GI: Abdomen is round non-distended. : No signs and/or symptoms were reported regarding the genitourinary system. Derm: Skin is intact, is healthy with good turgor, Skin is pink, warm \\T\\ dry. normal. Musculoskeletal: Circulation, motion, and sensation intact. Range of motion: intact in all extremities. 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 - Social history:: Smoking status: Patient uses tobacco products, smokes one pack cigarettes per day. , Patient uses vape. - Ebola Screening: : No symptoms or risks identified at this time. Screenin:55 Abuse screen: Denies threats or abuse. Denies injuries from another. Nutritional cc3 screening: No deficits noted. Tuberculosis screening: No symptoms or risk factors identified. Fall Risk Ambulatory Aid- None/Bed Rest/Nurse Assist (0 pts). Gait- Normal/Bed Rest/Wheelchair (0 pts) Mental Status- Oriented to own ability (0 pts). Assessment: 19:55 Respiratory: Airway is patent Respiratory effort is even, unlabored, Respiratory cc3 pattern is regular, symmetrical. EENT: Throat bilaterally with gag reflex present. 19:55 Respiratory: Breath sounds are clear bilaterally. cc3 20:20 Reassessment: Patient appears in no apparent distress at this time. Patient and/or cc3 family updated on plan of care and expected duration. Pain level reassessed. Patient is alert, oriented x 3, equal unlabored respirations, skin warm/dry/pink. 21:08 Reassessment: Patient appears in no apparent distress at this time. Patient and/or cc3 family updated on plan of care and expected duration. Pain level reassessed. Patient is alert, oriented x 3, equal unlabored respirations, skin warm/dry/pink. 21:25 Reassessment: Patient appears in no apparent distress at this time. Patient and/or cc3 family updated on plan of care and expected duration. Pain level reassessed. Patient is alert, oriented x 3, equal unlabored respirations, skin warm/dry/pink. ADELFO Navarrete discharged the patient home with prescription given. No IV cannula in situ. Patient left ER vitally stable and ambulatory. No valuables left in the patient's room. Patient denies pain at this time. Patient states feeling better. Patient states symptoms have improved. Vital Signs: 19:55 BP 130 / 76; Pulse 89; Resp 20 S; Temp 99.3(O); Pulse Ox 100% on R/A; Weight 58.97 kg cc3 (R); Height 5 ft. 0 in. (152.40 cm) (R); 20:45 BP 134 / 80; Pulse 92; Resp 20 S; Pulse Ox 100% on R/A; cc3 21:15 BP 139 / 82; Pulse 91; Resp 19 S; Pulse Ox 97% on R/A; cc3 19:55 Body Mass Index 25.39 (58.97 kg, 152.40 cm) cc3 ED Course: 19:47 Patient arrived in ED. es 19:48 Adan Giraldo MD is Private Physician. es 19:50 Libby Allen is Primary Nurse. cc3 19:50 [facility] pm1 19:50 Otto Faulkner MD is Attending Physician. pm1 19:55 Arm band placed on right wrist. Patient notified of wait time. cc3 19:55 Patient has correct armband on for positive identification. Bed in low position. Call cc3 light in reach. Side rails up X 1. Pulse ox on. NIBP on. 20:07 Triage completed. cc3 20:26 Chest Pa And Lat (2 Views) XRAY In Process Unspecified. EDMS 21:25 No provider procedures requiring assistance completed. Patient did not have IV access cc3 during this emergency room visit. Administered Medications: 21:20 Drug: Tessalon Perle 200 mg Route: PO; cc3 21:25 Follow up: Response: No adverse reaction cc3 Outcome: 21:16 Discharge ordered by MD. pm1 21:25 Discharged to home ambulatory. cc3 21:25 Condition: stable 21:25 Discharge instructions given to patient, Instructed on discharge instructions, follow up and referral plans. medication usage, Demonstrated understanding of instructions, follow-up care, medications. 21:29 Patient left the ED. cc3 Signatures: Dispatcher [employer] EDMS Viki Navarro Patrick, NP FISCAL AGENT pm1 Libby Allen cc3
--- NOTE | 2019-04-18 21:17 | EDPHYS ---
Physician Documentation [facility] Name: Lynn Hartman Age: 34 yrs Sex: Female : 1985 Arrival Date: 04/18/2019 Time: 19:47 Bed 19 Private MD: Adan Giraldo T ED Physician Otto Faulkner HPI: 04/18 20:14 This 34 yrs old Female presents to ER via Ambulatory with complaints of pm1 Fever, Sore Throat, Cough. 20:14 The patient or guardian reports cough. Onset: The symptoms/episode began/occurred pm1 yesterday. Modifying factors: The symptoms are alleviated by nothing. the symptoms are aggravated by nothing. Associated signs and symptoms: Pertinent positives: fever, sore throat, Pertinent negatives: chest pain, ear ache, nausea, vomiting, shortness of breath. Severity of symptoms: in the emergency department the symptoms are worse. The patient has not recently seen a physician. 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 - Social history:: Smoking status: Patient uses tobacco products, smokes one pack cigarettes per day. , Patient uses vape. - Ebola Screening: : No symptoms or risks identified at this time. ROS: 20:14 Eyes: Negative for injury, pain, redness, and discharge. pm1 20:14 Neck: Negative for injury, pain, and swelling, Cardiovascular: Negative for chest pain, palpitations, and edema. 20:14 Abdomen/GI: Negative for abdominal pain, nausea, vomiting, diarrhea, and constipation, Back: Negative for injury and pain, MS/Extremity: Negative for injury and deformity, Skin: Negative for injury, rash, and discoloration, Neuro: Negative for headache, weakness, numbness, tingling, and seizure. 20:14 Constitutional: Positive for fever. 20:14 ENT: Positive for sore throat, Negative for drainage from ear(s), ear pain. 20:14 Respiratory: Positive for cough, Negative for shortness of breath, wheezing. Exam: 20:14 Constitutional: This is a well developed, well nourished patient who is awake, alert, pm1 and in no acute distress. Head/Face: Normocephalic, atraumatic. Eyes: Pupils equal round and reactive to light, extra-ocular motions intact. Lids and lashes normal. Conjunctiva and sclera are non-icteric and not injected. Cornea within normal limits. Periorbital areas with no swelling, redness, or edema. ENT: Nares patent. No nasal discharge, no septal abnormalities noted. Tympanic membranes are normal and external auditory canals are clear. Oropharynx with no redness, swelling, or masses, exudates, or evidence of obstruction, uvula midline. Mucous membranes moist. Neck: Trachea midline, no thyromegaly or masses palpated, and no cervical lymphadenopathy. Supple, full range of motion without nuchal rigidity, or vertebral point tenderness. No Meningismus. Chest/axilla: Normal chest wall appearance and motion. Nontender with no deformity. No lesions are appreciated. Cardiovascular: Regular rate and rhythm with a normal S1 and S2. No gallops, murmurs, or rubs. Normal PMI, no JVD. No pulse deficits. Respiratory: Lungs have equal breath sounds bilaterally, clear to auscultation and percussion. No rales, rhonchi or wheezes noted. No increased work of breathing, no retractions or nasal flaring. Abdomen/GI: Soft, non-tender, with normal bowel sounds. No distension or tympany. No guarding or rebound. No evidence of tenderness throughout. Back: No spinal tenderness. No costovertebral tenderness. Full range of motion. Skin: Warm, dry with normal turgor. Normal color with no rashes, no lesions, and no evidence of cellulitis. MS/ Extremity: Pulses equal, no cyanosis. Neurovascular intact. Full, normal range of motion. 20:14 Neuro: Orientation: is normal, Motor: is normal, moves all fours, Sensation: is normal, no obvious gross deficits, Gait: is steady, at a normal pace, without difficulty. Vital Signs: 19:55 BP 130 / 76; Pulse 89; Resp 20 S; Temp 99.3(O); Pulse Ox 100% on R/A; Weight 58.97 kg cc3 (R); Height 5 ft. 0 in. (152.40 cm) (R); 20:45 BP 134 / 80; Pulse 92; Resp 20 S; Pulse Ox 100% on R/A; cc3 21:15 BP 139 / 82; Pulse 91; Resp 19 S; Pulse Ox 97% on R/A; cc3 19:55 Body Mass Index 25.39 (58.97 kg, 152.40 cm) cc3 MDM: 19:51 Patient medically screened. parul 21:14 Data reviewed: vital signs. Data interpreted: Pulse oximetry: on room air is 100 %. pm1 Interpretation: normal. Counseling: I had a detailed discussion with the patient and/or guardian regarding: the historical points, exam findings, and any diagnostic results supporting the discharge/admit diagnosis, lab results, radiology results, the need for outpatient follow up, to return to the emergency department if symptoms worsen or persist or if there are any questions or concerns that arise at home. 04/18 19:58 Order name: Flu; Complete Time: 20:44 pm1 04/18 19:58 Order name: Strep; Complete Time: 20:44 pm1 04/18 19:58 Order name: Chest Pa And Lat (2 Views) XRAY; Complete Time: 20:53 pm1 04/18 20:30 Order name: Throat Culture [facility] 04/18 20:49 Order name: Urine Dipstick--Ancillary (enter results); Complete Time: 21:51 ar5 04/18 20:49 Order name: Urine --Ancillary (enter results); Complete Time: 21:51 ar5 04/18 19:58 Order name: Urine Dipstick-Ancillary (obtain specimen); Complete Time: 20:46 pm1 04/18 19:58 Order name: Urine Test (obtain specimen); Complete Time: 20:46 pm1 Administered Medications: 21:20 Drug: Tessalon Perle 200 mg Route: PO; cc3 21:25 Follow up: Response: No adverse reaction cc3 Disposition: 04/19 07:13 Co-signature as Attending Physician, Otto Faulkner MD I agree with the assessment and parul plan of care. Disposition: 04/18/19 21:16 Discharged to Home. Impression: Acute upper respiratory infection, unspecified. - Condition is Stable. - Discharge Instructions: Upper Respiratory Infection, Adult, Viral Respiratory Infection. - Prescriptions for Tessalon Perles 100 mg Oral Capsule - take 1 capsule by ORAL route every 8 hours As needed; 15 capsule. - Medication Reconciliation Form, Thank You Letter, Antibiotic Education, Prescription Opioid Use form. - Follow up: Emergency Department; When: As needed; Reason: Worsening of condition. Follow up: Private Physician; When: 2 - 3 days; Reason: Recheck today's complaints, Continuance of care, Re-evaluation by your physician. - Problem is new. - Symptoms have improved. Signatures: Dispatcher [employer] EDOtto Mar MD MD cha Marinas, Patrick, MEDICAL APPOINTMENT SCHEDULER MEDICAL APPOINTMENT SCHEDULER pm1 Libby Allen cc3 Corrections: (The following items were deleted from the chart) 04/18 21:29 21:16 04/18/2019 21:16 Discharged to Home. Impression: Acute upper respiratory cc3 infection, unspecified. Condition is Stable. Forms are Medication Reconciliation Form, Thank You Letter, Antibiotic Education, Prescription Opioid Use. Follow up: Emergency Department; When: As needed; Reason: Worsening of condition. Follow up: Private Physician; When: 2 - 3 days; Reason: Recheck today's complaints, Continuance of care, Re-evaluation by your physician. Problem is new. Symptoms have improved. pm1
[2019-04-18 21:26] LABS: Urine Blood NEGATIVE (NEG); Urine Glucose NEGATIVE (NEG); Urine Protein NEGATIVE (NEG); Urine Specific Gravity 1.015 (1.005-1.030)
[2019-04-18] MEDS ORDERED: BENZONATATE 100 MG CAP PO ONE (21:36)
== END 2019-04-18 21:29 | disposition home or self-care (01) ==
LOC: ER 19:44
DX: J06.9 Acute upper respiratory infection, unspecified (principal); F41.9 Anxiety disorder, unspecified; F17.210 Nicotine dependence, cigarettes, uncomplicated
CPT/HCPCS: 71046; 81003; 81025; 87070; 87081; 87804; 99283

== ENCOUNTER 2021-04-18 20:16 | Emergency (ER) | payer BC, SELFPAY ==
[2021-04-18 21:15] LABS: Urine Blood Negative (Negative); Urine Glucose Negative (Negative); Urine Protein Negative (Negative); Urine Specific Gravity 1.015 (1.005-1.030)
[2021-04-18 21:17] LABS: Basophils % 0.7 % (0-1.3); Hematocrit 41.5 % (36.0-45.0); Lymphocytes % 15.6 % (15.3-44.8); MPV 9.3 fL (7.6-11.3); RBC Red Blood Cell Count 4.79 M/uL (3.86-4.86)
[2021-04-18 21:34] LABS: Protime INR 1.18
[2021-04-18 21:35] LABS: ALT/SGPT 102 U/L (12-78); AST/SGOT 68 U/L (15-37); Albumin 3.5 g/dL (3.4-5.0); Alkaline Phosphatase 127 U/L (45-117); BUN Blood Urea Nitrogen 4 mg/dL (7-18); Bicarbonate 31 mmol/L (21-32); Bilirubin Direct 0.1 mg/dL (0-0.2); Bilirubin Total 0.4 mg/dL (0.2-1.0); Glucose Level 85 mg/dL (74-106); NT PRO-BNP 67 pg/mL (<125); Potassium 3.7 mmol/L (3.5-5.1); Protein, Total 7.3 g/dL (6.4-8.2); Sodium Level 139 mmol/L (136-145); Troponin (Emerg Dept Use Only) < 0.02 ng/mL (0.0-0.045)
--- NOTE | 2021-04-18 21:43 | RAD REPORT ---
EXAM DESCRIPTION: RAD - Chest Single View - 04/18/2021 9:09 pm CLINICAL HISTORY: CHEST PAIN COMPARISON: April 2019 TECHNIQUE: AP portable chest image was obtained 04/18/2021 9:09 pm . FINDINGS: Shallow inspiration, portable technique and overlying soft tissues accentuate each lung ba se. Heart and vasculature are normal. No measurable pleural effusion and no pneumothorax. No acute faby ny abnormality seen. No acute aortic findings suspected. IMPRESSION: No acute cardiopulmonary process. No significant change from comparison study.
[2021-04-18 21:55] LABS: Urine Specific Gravity/Preg 1.015 (1.005-1.030)
[2021-04-18] MEDS ORDERED: LEVALBUTEROL 1.25 MG/3 ML NEB ONE (23:02)
[2021-04-18] MEDS ORDERED: HYDROCODONE/CHLORPHEN 5 ML/OSYR ONE (23:02)
[2021-04-18] MEDS ORDERED: NA CHLORIDE 0.9% 1,000 ML ONE (23:03)
[2021-04-18] MEDS ORDERED: METHYLPREDNISOLONE 40 MG INJ ONE (23:03)
[2021-04-18] MEDS ORDERED: ACETAMINOPHEN 500 MG TAB ONE (23:59)
[2021-04-19] MEDS ORDERED: BENZONATATE 100 MG CAP PO ONE
--- NOTE | 2021-04-19 00:32 | EDPHYS ---
Physician Documentation [facility] Name: Lynn Hartman Age: 36 yrs Sex: Female : 1985 Arrival Date: 04/18/2021 Time: 20:19 Bed 19 Private MD: ED Physician Minesh Hernandez HPI: 04/18 22:15 This 36 yrs old Female presents to ER via Ambulatory with complaints of cp Cough, Chest Pain > 30 y/o. 22:15 The patient or guardian reports cough, that is constant, difficulty breathing. Onset: cp The symptoms/episode began/occurred 1 week(s) ago. 22:15 Associated signs and symptoms: Pertinent positives: chest pain, with cough, shortness cp of breath. 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 - Social history:: Smoking status: Patient reports the use of cigarette tobacco products, smokes one pack cigarettes per day. Exam: 20:47 ECG was reviewed by the Attending Physician. cp 22:25 Constitutional: The patient appears in no acute distress, alert, awake, cp non-diaphoretic, non-toxic, well developed, well nourished, obese. 22:25 Head/Face: Normocephalic, atraumatic. cp 22:25 Eyes: Periorbital structures: appear normal, Conjunctiva: normal, no exudate, no injection, Sclera: no appreciated abnormality, Lids and lashes: appear normal, bilaterally. 22:25 ENT: External ear(s): are unremarkable, Ear canal(s): are normal, clear, TM's: dullness, bilaterally, Nose: is normal, Mouth: Lips: moist, Oral mucosa: moist, Posterior pharynx: Airway: no evidence of obstruction, patent, Tonsils: no enlargement, no exudate, swelling, is not appreciated, erythema, that is mild, exudate, is not appreciated. 22:25 Neck: ROM/movement: is normal, is supple, no meningismus, no nuchal rigidity. 22:25 Chest/axilla: Inspection: normal, Palpation: crepitus, is not appreciated, tenderness, that is mild, of the right lateral posterior chest and right lateral anterior chest. 22:25 Cardiovascular: Rate: normal, Rhythm: regular, Edema: is not appreciated, JVD: is not appreciated. 22:25 Respiratory: the patient does not display signs of respiratory distress, Respirations: normal, no use of accessory muscles, no retractions, no splinting, no tachypnea, labored breathing, is not present, Breath sounds: bronchial sounds, that are mild, are heard diffusely, stridor, is not appreciated, + upper airway congestion. wheezing: is not appreciated. 22:25 Abdomen/GI: Inspection: abdomen appears normal, Bowel sounds: active, all quadrants, Palpation: abdomen is soft and non-tender, in all quadrants. 22:25 Back: pain, is absent, ROM is normal. Vital Signs: 20:31 BP 125 / 86; Pulse 93; Resp 20; Temp 99.0(O); Pulse Ox 96% on R/A; Weight 84.28 kg (M); bb Height 5 ft. 0 in. (152.40 cm) (R); Pain 8/10; 22:10 BP 125 / 95; Pulse 99; Resp 16; Pulse Ox 96% on R/A; jb4 23:45 BP 121 / 69; Pulse 95; Resp 16; Pulse Ox 95% on R/A; jb4 20:31 Body Mass Index 36.29 (84.28 kg, 152.40 cm) bb MDM: 22:16 Patient medically screened. cp 23:00 Differential Diagnosis: Bronchitis Influenza Pneumonia Other pulmonary embolism, cp cardiac arrythmia. 04/19 00:30 Data reviewed: vital signs, nurses notes, lab test result(s), EKG, radiologic studies, cp plain films. Test interpretation: by ED physician or midlevel provider: ECG, plain radiologic studies. Counseling: I had a detailed discussion with the patient and/or guardian regarding: the historical points, exam findings, and any diagnostic results supporting the discharge/admit diagnosis, lab results, radiology results, to return to the emergency department if symptoms worsen or persist or if there are any questions or concerns that arise at home. Response to treatment: the patient's symptoms have markedly improved after treatment, and as a result, I will discharge patient. 04/18 20:49 Order name: Basic Metabolic Panel; Complete Time: 22:06 04/18 22:06 Interpretation: Normal except: BUN 4. 04/18 20:49 Order name: CBC with Diff; Complete Time: 22:06 04/18 23:17 Interpretation: Normal except: WBC 12.80; EOSA 0.6; EOSINOPHIL % 4.7; NEUT A 9.1. 04/18 20:49 Order name: LFT's; Complete Time: 22:06 04/18 22:07 Interpretation: Normal except: AST 68; ALT 102; ALK 127; GLOB 3.8; A/G 0.9. 04/18 20:49 Order name: Magnesium; Complete Time: 22:06 04/18 20:49 Order name: NT PRO-BNP; Complete Time: 22:06 04/18 20:49 Order name: PT-INR; Complete Time: 23:16 04/18 23:17 Interpretation: Abnormal: PT 13.6. 04/18 20:49 Order name: Troponin (emerg Dept Use Only); Complete Time: 22:06 04/18 21:14 Order name: Urine Dipstick-Ancillary; Complete Time: 22:06 EDTN 04/18 21:24 Order name: Urine --Ancillary (enter results) tt3 04/18 21:24 Order name: Urine --Ancillary; Complete Time: 22:06 EDTN 04/18 22:13 Order name: D-Dimer; Complete Time: 23:16 [facility] 04/18 23:16 Interpretation: Within normal limits: D-DIMER 478. 04/18 22:13 Order name: Influenza Screen (a \T\ B); Complete Time: 00:13 04/19 00:13 Interpretation: Reviewed. 04/18 20:49 Order name: XRAY Chest (1 view); Complete Time: 22:06 04/18 20:49 Order name: EKG; Complete Time: 20:50 04/18 20:49 Order name: Cardiac monitoring; Complete Time: 23:21 04/18 20:49 Order name: EKG - Nurse/Tech; Complete Time: 22:18 04/18 20:49 Order name: IV Saline Lock; Complete Time: 22:18 04/18 20:49 Order name: Labs collected and sent; Complete Time: 22:18 04/18 20:49 Order name: O2 Per Protocol; Complete Time: 22:18 04/18 22:15 Order name: US Abdomen Limited cp 04/19 00:26 Order name: SARS-COV-2 RT PCR EDMS 04/18 20:49 Order name: O2 Sat Monitoring; Complete Time: 22:18 04/18 21:24 Order name: Urine Test (obtain specimen); Complete Time: 21:24 tt3 EC/15 20:47 Rate is 87 beats/min. Rhythm is regular. WV interval is normal. QRS interval is normal. cp QT interval is normal. T waves are Inverted in leads III, aVR, V2, V3, V4. Interpreted by me. Reviewed by me. Administered Medications: 23:02 Drug: SOLU-Medrol (methylPrednisoLONE) 80 mg Route: IVP; Site: right antecubital; jb4 23:40 Follow up: Response: No adverse reaction jb4 23:02 Drug: Tussionex Pennkinetic ER (chlorpheniramine-hydrocodone) Suspension 5 ml Route: PO;jb4 23:40 Follow up: Response: No adverse reaction jb4 23:02 Drug: Xopenex (levalbuterol) (3) 1.25 mg Route: Inhalation; jb4 23:40 Follow up: Response: No adverse reaction jb4 23:02 Drug: NS 0.9% 1000 ml Route: IV; Rate: 1 bolus; Site: right antecubital; jb4 23:40 Drug: Tylenol 1000 mg Route: PO; jb4 23:40 Drug: Tessalon Perle (benzonatate) 200 mg Route: PO; jb4 Disposition: 04/19 06:37 Co-signature as Attending Physician, Minesh Hernandez MD. [email or web address] Disposition Summary: 04/19/21 00:31 Discharge Ordered Location: Home cp Problem: new cp Symptoms: have improved cp Condition: Stable cp Diagnosis - Acute bronchitis, unspecified cp Followup: cp - With: Private Physician - When: 2 - 3 days - Reason: Worsening of condition Discharge Instructions: - Discharge Summary Sheet cp - Acute Bronchitis, Adult cp Forms: - Medication Reconciliation Form cp - Thank You Letter cp - Antibiotic Education cp - Prescription Opioid Use cp - Work release form ak2 Prescriptions: - Ibuprofen 800 mg Oral Tablet - take 1 tablet by ORAL route every 8 hours As needed take with food; 30 tablet; cp Refills: 0, Product Selection Permitted - Tessalon Perles 100 mg Oral Capsule - take 2 capsule by ORAL route every 8 hours As needed; 30 capsule; Refills: 0, cp Product Selection Permitted - albuterol sulfate 90 mcg/actuation Inhalation HFA aerosol inhaler - inhale 2 puff by INHALATION route every 4-6 hours; 1 Inhaler; Refills: 0, cp Product Selection Permitted - Zithromax Z-Terrell 250 mg Oral Tablet - take 1 tablet by ORAL route as directed for 5 days Day 1 - take two (2) tablets cp one time. Day 2, 3, 4 , 5 take one (1) tablet once daily.; 6 tablet; Refills: 0, Product Selection Permitted - Medrol (Terrell) 4 mg Oral Tablets, Dose Pack - take 1 tablet by ORAL route as directed - follow package instructions; 1 cp packet; Refills: 0, Product Selection Permitted Signatures: Dispatcher [employer] EDMS Katherin James, MARK RN bb Otto Nayak PA PA cp Nilesh Evans RN RN jb4 Minesh Hernandez MD MD [email or web address] Charlie Hicks tt3 Corrections: (The following items were deleted from the chart) 04/18 22:13 22:09 D-DIMER+COAG.LAB.BRZ ordered. EDMS EDMS 22:21 22:14 Abdomen Limited+US.RAD.BRZ ordered. EDMS EDMS 23:17 22:14 Normal except: WBC 12.80. cp cp 23:32 22:09 CORONAVIRUS+MR.LAB.BRZ ordered. EDMS EDMS
--- NOTE | 2021-04-19 00:32 | ER ---
Nurse's Notes [facility] Name: Lynn Hartman Age: 36 yrs Sex: Female : 1985 Arrival Date: 04/18/2021 Time: 20:19 Bed 19 Private MD: Diagnosis: Acute bronchitis, unspecified Presentation: 04/18 20:31 Chief complaint: Patient states: Cough x 1 week, chest pain starting last night 04/17. bb Coronavirus screen: Client denies travel out of the [place] in the last 14 days. At this time, unable to obtain information related to travel outside the [place] Client presents with at least one sign or symptom that may indicate coronavirus-19. Standard/surgical mask placed on the client. Ebola Screen: Patient negative for fever greater than or equal to 101.5 degrees Fahrenheit, and additional compatible Ebola Virus Disease symptoms Patient denies exposure to infectious person. Patient denies travel to an Ebola-affected area in the 21 days before illness onset. Initial Sepsis Screen: Does the patient meet any 2 criteria? No. Patient's initial sepsis screen is negative. Does the patient have a suspected source of infection? No. Patient's initial sepsis screen is negative. Risk Assessment: Do you want to hurt yourself or someone else? Patient reports no desire to harm self or others. Onset of symptoms was April 17, 2021. 20:31 Method Of Arrival: Ambulatory bb 20:31 Acuity: RONI 3 bb Triage Assessment: 20:33 General: Appears in no apparent distress. Behavior is calm, cooperative, appropriate bb for age, quiet. Pain: Complains of pain in right breast Pain currently is 8 out of 10 on a pain scale. at worst was 8 out of 10 on a pain scale. level that patient reports is acceptable is 3 out of 10 on a pain scale. Quality of pain is described as Pain began 1 day ago. 20:34 Pain: Quality of pain is described as sharp, stabbing. 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 - Social history:: Smoking status: Patient reports the use of cigarette tobacco products, smokes one pack cigarettes per day. Screenin:33 Abuse screen: Denies threats or abuse. Denies injuries from another. Nutritional bb screening: No deficits noted. Tuberculosis screening: No symptoms or risk factors identified. Fall Risk None identified. No fall in past 12 months (0 pts). No secondary diagnosis (0 pts). No IV (0 pts). Ambulatory Aid- None/Bed Rest/Nurse Assist (0 pts). Gait- Normal/Bed Rest/Wheelchair (0 pts) Mental Status- Oriented to own ability (0 pts). Total Whitfield Fall Scale indicates No Risk (0-24 pts). Assessment: 20:36 Pain: Pain does not radiate. bb 22:10 General: Appears in no apparent distress. uncomfortable, Behavior is calm, cooperative, jb4 appropriate for age. Pain: Complains of pain in chest Pain does not radiate. Pain currently is 9 out of 10 on a pain scale. Quality of pain is described as sharp, stabbing. Neuro: Level of Consciousness is awake, alert, obeys commands, Oriented to person, place, time, situation. Cardiovascular: Patient's skin is warm and dry. Respiratory: Airway is patent Respiratory effort is even, unlabored, Respiratory pattern is regular, symmetrical. GI: No signs and/or symptoms were reported involving the gastrointestinal system. : No signs and/or symptoms were reported regarding the genitourinary system. EENT: No signs and/or symptoms were reported regarding the EENT system. Derm: Skin is intact, Skin is pink, warm \T\ dry. Musculoskeletal: No signs and/or symptoms reported regarding the musculoskeletal system. 23:30 Reassessment: Patient appears in no apparent distress at this time. Patient and/or jb4 family updated on plan of care and expected duration. Pain level reassessed. Patient is alert, oriented x 3, equal unlabored respirations, skin warm/dry/pink. Vital Signs: 20:31 BP 125 / 86; Pulse 93; Resp 20; Temp 99.0(O); Pulse Ox 96% on R/A; Weight 84.28 kg (M); bb Height 5 ft. 0 in. (152.40 cm) (R); Pain 8/10; 22:10 BP 125 / 95; Pulse 99; Resp 16; Pulse Ox 96% on R/A; jb4 23:45 BP 121 / 69; Pulse 95; Resp 16; Pulse Ox 95% on R/A; jb4 20:31 Body Mass Index 36.29 (84.28 kg, 152.40 cm) bb ED Course: 20:19 Patient arrived in ED. wm 20:33 Triage completed. bb 20:34 Arm band placed on right wrist. bb 20:34 Patient has correct armband on for positive identification. bb 20:36 ekg monitor tech on. Pulse ox on. NIBP on. bb 20:36 Patient maintains SpO2 saturation greater than 95% on room air. bb 21:09 XRAY Chest (1 view) In Process Unspecified. EDMS 22:06 Otto Nayak PA is PHCP. cp 22:06 Minesh Hernandez MD is Attending Physician. cp 22:43 US Abdomen Limited In Process Unspecified. EDMS 23:21 Nilesh Evans, MARK is Primary Nurse. jb4 04/19 00:44 No provider procedures requiring assistance completed. IV discontinued. ak2 Administered Medications: 04/18 23:02 Drug: SOLU-Medrol (methylPrednisoLONE) 80 mg Route: IVP; Site: right antecubital; jb4 23:40 Follow up: Response: No adverse reaction jb4 23:02 Drug: Tussionex Pennkinetic ER (chlorpheniramine-hydrocodone) Suspension 5 ml Route: PO;jb4 23:40 Follow up: Response: No adverse reaction jb4 23:02 Drug: Xopenex (levalbuterol) (3) 1.25 mg Route: Inhalation; jb4 23:40 Follow up: Response: No adverse reaction jb4 23:02 Drug: NS 0.9% 1000 ml Route: IV; Rate: 1 bolus; Site: right antecubital; jb4 23:40 Drug: Tylenol 1000 mg Route: PO; jb4 23:40 Drug: Tessalon Perle (benzonatate) 200 mg Route: PO; jb4 Outcome: 04/19 00:31 Discharge ordered by . cp 00:44 Discharged to home ambulatory. ak2 00:44 Condition: good 00:44 Discharge instructions given to patient, Prescriptions given X 00:44 Patient left the ED. ak2 Signatures: Dispatcher [employer] EDMS Katherin James, RN RN bb Otto Nayak PA PA cp Bryson, James, MARK RN jb4 Robbie Melchor az2 Evie Cerrato
[2021-04-19 00:49] VITALS: TEMP 99
[2021-04-19 00:53] VITALS: BP 121/69; O2SAT 95
--- NOTE | 2021-04-19 07:11 | RAD REPORT ---
EXAM DESCRIPTION: US - Abdomen Exam Limited - 04/18/2021 10:43 pm CLINICAL HISTORY: elevated liver enzymes COMPARISON: No comparisons FINDINGS: The gallbladder demonstrates no gallstones. No pericholecystic fluid or gallbladder wall t hickening. The common bile duct is normal measuring 4 mm. The liver demonstrates no findings of intrahepatic biliary dilatation. IMPRESSION: Negative for cholelithiasis or acute cholecystitis.
--- NOTE | 2021-04-19 11:43 | EKG ---
Test Date: 2021-04-18 Test Time: 20:42:11 Logistics Specialist: SHARIF MEASUREMENT RESULTS: Intervals: Rate: 87 [place]: 144 QRSD: 94 QT: 378 QTc: 454 [place]: P: 49 [place]: 144 QRS: 68 T: 17 INTERPRETIVE STATEMENTS: Normal sinus rhythm Nonspecific T wave abnormality Abnormal ECG Compared to ECG 01/12/2019 15:27:41 T-wave abnormality now present Right-axis deviation no longer present Electronically Signed On 04-19-21 11:42:03 CDT by Kev Singh
== END 2021-04-19 00:44 | disposition home or self-care (01) ==
LOC: ER 20:16
DX: J20.9 Acute bronchitis, unspecified (principal); Z20.822 Contact with and (suspected) exposure to COVID-19; F41.9 Anxiety disorder, unspecified; F31.9 Bipolar disorder, unspecified; F17.210 Nicotine dependence, cigarettes, uncomplicated
CPT/HCPCS: 36415; 71045; 76705; 80048; 80076; 81003; 81025; 83735; 83880; 84484; 85025; 85379; 85610; 87804; 93005; 96374; 99285; J2920; J7030; U0003